=== PATIENT | female | born 1995 | race African-American/Black ===

== ENCOUNTER 2021-10-11 08:54 | Emergency (ER) | payer MEDICAID ==
[~2021-10-11] VITALS: Ht 154.9 cm; Wt 51.0 kg
[2021-10-11 08:57] VITALS: BP 132/74
[2021-10-11] MEDS ORDERED: ACETAMINOPHEN 325MG TABLET PO ONE (09:15)
[2021-10-11 09:30] LABS: CLARITY URINE CLEAR (CLEAR); COLOR URINE YELLOW (YELLOW); KETONES URINE NEGATIVE (NEGATIVE); LEUKOCYTE ESTERASE URINE NEGATIVE (NEGATIVE); NITRITE URINE NEGATIVE (NEGATIVE); OCCULT BLOOD URINE 3+ (NEGATIVE); PROTEIN URINE 1+ (NEGATIVE); SPECIFIC GRAVITY URINE 1.022 (1.005-1.030)
[2021-10-11 09:34] LABS: HEMATOCRIT. 41.8 % (36.0-48.0); HEMOGLOBIN. 13.8 g/dL (12.0-16.0); MEAN CORPUSCULAR HEMOGLOBIN 30.2 pg (28.0-32.0); MEAN CORPUSCULAR VOLUME 91.2 fL (81.0-99.0); MEAN PLATELET VOLUME 10.6 fl (7.4-10.4); PLATELET 189 x1000/uL (130-400); RED BLOOD CELL COUNT 4.59 mill/uL (4.2-5.4); RED CELL DISTRIBUTION WIDTH 13.6 % (11.6-14.6)
[2021-10-11 09:44] LABS: CHLORIDE 108 mEq/L (98-107)
[2021-10-11 09:53] LABS: B-HCG QUANTITATIVE < 1 mIU/mL (<3)
[2021-10-11 10:42] LABS: PLATELET ESTIMATE NORMAL
[2021-10-11] MEDS ORDERED: KETOROLAC 15MG/ML VIAL IM ONE (11:00)
== END 2021-10-11 11:24 | disposition home or self-care (01) ==
LOC: ER 09:07
DX: N83.201 Unspecified ovarian cyst, right side (principal); Z88.6 Allergy status to analgesic agent
CPT/HCPCS: 36415; 76830; 76856; 80053; 81003; 81025; 84702; 85025; 96372; 99284; J1885